=== PATIENT | male | born 1950 | race Two or more races ===

== ENCOUNTER 2020-01-22 14:59 | Emergency (ER) | payer MEDICAID ==
[~2020-01-22] VITALS: Ht 165.1 cm; Wt 98.9 kg
--- NOTE | 2020-01-22 15:00 | NUR ---
ER BED 1 PT BIBRA C/P GLF WITH HEAD LACERATION. BLEEDING NOTED. APPLIED PRESSURE. VS CHECKED. AWAITING MD LOPEZ
--- NOTE | 2020-01-22 15:05 | NUR ---
SEEN BY MD HENRIQUEZ GAVE LIDOCAINE WITH EPI FOR STAPLING OF HEAD LACERATION.
[2020-01-22] MEDS ORDERED: LIDOCAINE 1%-EPI 1:100,000 20 ML VIAL ONE (15:13)
--- NOTE | 2020-01-22 15:25 | NUR ---
MD APPLIED KATHERIN ON PTS HEAD LACERATION WITH PRIMARY RN BY BEDSIDE. 9 KATHERIN APPLIED. WOUND CARE DONE. APPLIED PRESSURE DRESSING.
--- NOTE | 2020-01-22 15:32 | NUR ---
CALLED LAB FOR BLOOD DRAW
--- NOTE | 2020-01-22 15:44 | NUR ---
PT OUT FOR CT
[2020-01-22 15:49] LABS: BASOPHILS # (AUTO) 0.1 /CMM (0.0-0.2); BASOPHILS % (AUTO) 0.8 % (0.0-2.0); EOSINOPHILS % (AUTO) 1.7 % (0.0-6.0); HEMATOCRIT 37 % (39-51); HEMOGLOBIN 12.4 g/dL (13.5-17.5); LYMPHOCYTES # (AUTO) 1.1 /CMM (0.8-4.8); LYMPHOCYTES % (AUTO) 14.1 % (20.0-44.0); MEAN CORPUSCULAR HGB CONC 33 g/dl (31.0-36.0); MEAN CORPUSCULAR VOLUME 89 fL (80-96); MONOCYTES # (AUTO) 0.7 /CMM (0.1-1.30); MONOCYTES % (AUTO) 9.2 % (2.0-12.0); NEUTROPHILS % (AUTO) 74.2 % (43.0-81.0); PLATELET COUNT (AUTO) 277 /CMM (150-450); RED BLOOD CELL COUNT(AUTO) 4.22 MIL/uL (4.5-6.0); WHITE BLOOD COUNT (AUTO) 8.1 K/uL (4.3-11.0)
--- NOTE | 2020-01-22 15:49 | NUR ---
PT BACK FROM CT
[2020-01-22 16:13] LABS: CALCIUM, SERUM 9.1 mg/dL (8.5-10.1); CREATININE 1.4 mg/dL (0.6-1.3); POTASSIUM 4.1 mmol/L (3.5-5.1)
--- NOTE | 2020-01-22 16:59 | NUR ---
MD REOPENED DRESSING. CHECKED KATHERIN. NO BLEEDING NOTED ON SITE. KATHERIN INTACT. PER MD PT MAY GO HOME AFTER DRESSING IS REAPPLIED.
--- NOTE | 2020-01-22 17:01 | NUR ---
Patient discharged to home in stable condition. Written and verbal after care instructions given. Patient verbalizes understanding of instruction.
[2020-01-22 17:13] VITALS: BP 138/77
== END 2020-01-22 17:13 | disposition home or self-care (01) ==
LOC: ER 15:02
DX: S01.01XA Laceration without foreign body of scalp, initial encounter (principal); E11.9 Type 2 diabetes mellitus without complications; W10.8XXA Fall (on) (from) other stairs and steps, initial encounter; Y93.89 Activity, other specified; Y92.89 Other specified places as the place of occurrence of the external cause; Y99.8 Other external cause status
CPT/HCPCS: 12002; 36415; 70450; 72125; 80048; 85025; 85730; 86850; 99285; J3490

== ENCOUNTER 2020-01-29 14:19 | Emergency (ER) | payer MEDICAID ==
[~2020-01-29] VITALS: Ht 167.6 cm; Wt 99.8 kg
[2020-01-29 14:28] VITALS: BP 141/73
--- NOTE | 2020-01-29 15:16 | NUR ---
Patient discharged to home in stable condition. Written and verbal after care instructions given. Patient verbalizes understanding of instruction.
== END 2020-01-29 15:16 | disposition home or self-care (01) ==
LOC: ER 14:22
DX: S01.01XD Laceration without foreign body of scalp, subsequent encounter (principal); E11.9 Type 2 diabetes mellitus without complications; X58.XXXD Exposure to other specified factors, subsequent encounter